=== PATIENT | female | born 1975 | race Caucasian/White ===

== ENCOUNTER 2023-12-28 07:56 | Emergency (ER) | payer OTHER ==
[2023-12-28] MEDS: Ibuprofen 600 MG Tab PO ONE (11:19)
== END 2023-12-28 11:31 | disposition home or self-care (01) ==
LOC: MW.ED 07:56
DX: S92.252A Displaced fracture of navicular [scaphoid] of left foot, initial encounter for closed fracture (principal); Z75.8 Other problems related to medical facilities and other health care; X50.1XXA Overexertion from prolonged static or awkward postures, initial encounter; Y93.01 Activity, walking, marching and hiking
CPT/HCPCS: 73610; 73620; 99283; A9270